=== PATIENT | female | born 1975 | race American Indian/Alaskan Native ===

== ENCOUNTER 2017-07-04 23:26 | Emergency (ER) | payer OTHER, BC ==
[2017-07-05 00:52] VITALS: BP 133/84
[2017-07-05] MEDS: MOTRIN PO ONE (01:23)
--- NOTE | 2017-07-05 02:05 | XRay Report ---
FINAL REPORT EXAM: XR KNEE 1-2V LT HISTORY: left knee pain TECHNIQUE: AP and lateral views of the left knee were obtained. FINDINGS: There is prepatellar soft tissue swelling. There is no evidence of fracture or joint effusion. All 3 compartments otherwise well maintained. IMPRESSION: Prepatellar soft tissue swelling. No evidence of fracture.
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
== END 2017-07-05 08:53 | disposition home or self-care (01) ==
LOC: ED 23:26
DX: S13.4XXA Sprain of ligaments of cervical spine, initial encounter (principal); S80.02XA Contusion of left knee, initial encounter; I10 Essential (primary) hypertension; Z88.2 Allergy status to sulfonamides; V49.49XA Driver injured in collision with other motor vehicles in traffic accident, initial encounter; Y92.488 Other paved roadways as the place of occurrence of the external cause; Y93.89 Activity, other specified; Y99.8 Other external cause status
CPT/HCPCS: 99283

== ENCOUNTER 2017-09-23 11:23 | Outpatient (CLI) | payer BC ==
--- NOTE | 2017-09-23 16:36 | Mammography Report ---
BILATERAL DIGITAL SCREENING MAMMOGRAM with CAD: 09/23/17 11:23:00 CLINICAL: Routine screening. COMPARISON:None available. She is unsure as to where she previously had a mammogram. FINDINGS: The breasts are heterogeneously dense, which may obscure small masses. Bilateral parenchymal asymmetries require additional imaging.No architectural distortion or suspicious calcifications. IMPRESSION: Bilateral asymmetries requiring further workup. BI-RADS CATEGORY: 0 -- Additional Imaging Evaluation Required RECOMMENDATION: Recall for bilateral through lateral and spot compression views and bilateral breast ultrasound if needed. ACR BI-RADS MAMMOGRAPHIC CODES: 0 = Needs additional imaging evaluation; 1 = Negative; 2 = Benign; 3 = Probably benign; 4 = Suspicious; 5 = Malignant; 6 = Known biopsy-proven malignancy COMMENT: 1. Dense breast tissue, i.e., adenosis, fibrocystic changes, etc., may obscure an underlying neoplasm. 2. Approximately 10% of cancers are not detected with mammography. 3. A negative mammography report should not delay biopsy if a clinically suspicious mass is present. COMMENT: Patient follow-up letters are generated via our [email or web address] application.
== END 2017-09-23 11:24 | disposition home or self-care (01) ==
LOC: SPVWC 11:23
PROVIDERS: ATTEND Obstetrics & Gynecology
DX: Z12.31 Encounter for screening mammogram for malignant neoplasm of breast (principal); I10 Essential (primary) hypertension
CPT/HCPCS: 77067

== ENCOUNTER 2017-10-12 10:53 | Outpatient (CLI) | payer BC ==
--- NOTE | 2017-10-12 15:05 | Mammography Report ---
Bilateral diagnostic mammogram and bilateral whole breast ultrasound including all 4 quadrants and subareolar regions. History: Recall for multiple bilateral asymmetries. Findings: Spot compression images of both breasts in both projections reveal questionable persistence of 2 of the right asymmetries, one medial and one lateral. Compression images of the left breast also demonstrates questionable persistence of at least one of the densities seen laterally. Whole breast ultrasound of both breasts was performed. On the right side, multiple subcentimeter small cysts are noted throughout the breast, at least 8 in number. At the 6:00 position in the right breast, near the areola, there is a slightly lobulated complex lesion which may represent a complex cyst measuring 0.5 cm in maximum dimension. I cannot state with certainty that there is a mammographic correlate. Whole breast ultrasound of the left breast demonstrates multiple small cysts, at least 4 in number, the largest of which measures 1.1 x 0.3 x 1.1 cm at 3:00 position. This could represent the mammographic density seen laterally. No solid lesions or other suspicious findings are seen. Impression: Multiple bilateral small cysts are noted. In the right breast at the 6:00 position in the subareolar region, there is a complex lesion measuring 5 mm in diameter, probably benign. BI-RADS code: 3. A six-month followup targeted ultrasound of this lesion is recommended to ensure stability.
== END 2017-10-12 10:54 | disposition home or self-care (01) ==
LOC: SPVWC 10:53
PROVIDERS: ATTEND Obstetrics & Gynecology
DX: N60.01 Solitary cyst of right breast (principal); N60.02 Solitary cyst of left breast
CPT/HCPCS: 77066

== ENCOUNTER 2018-04-29 11:46 | Outpatient (CLI) | payer BC ==
--- NOTE | 2018-04-29 15:26 | Ultrasound Report ---
RIGHT BREAST ULTRASOUND: 04/29/18 11:46:00 CLINICAL: Followup complex cyst COMPARISON: 10/12/17 FINDINGS: Ultrasound of the right breast demonstrateda less complex retroareolar cyst at 6 o'clock. It now has fewer echoes and a better defined thin wall. No suspicious finding. IMPRESSION: Benign right retroareolar breast cyst at 6 o'clock. BI-RADS 2 - - Benign RECOMMENDATION: Return to routine mammographic screening.
== END 2018-04-29 11:47 | disposition home or self-care (01) ==
LOC: SPVWC 11:46
PROVIDERS: ATTEND Obstetrics & Gynecology
DX: N60.01 Solitary cyst of right breast (principal); I10 Essential (primary) hypertension; Z88.2 Allergy status to sulfonamides; Z90.49 Acquired absence of other specified parts of digestive tract